=== PATIENT | female | born 1990 | race Caucasian/White ===

== ENCOUNTER 2023-12-17 12:03 | Emergency (ER) | payer BC ==
[~2023-12-17] VITALS: Ht 175.3 cm; Wt 73.0 kg
[2023-12-17] VITALS (9 sets, daily range): BP systolic 126; BP diastolic 85; TEMP 98.4; O2SAT 97–100
[2023-12-17] MEDS ORDERED: predniSONE 20 MG TABLET ONE (12:38)
[2023-12-17] MEDS: predniSONE 20 MG TABLET PO ONE (12:41)
[2023-12-17] MEDS ORDERED: IPRATROPIUM NEB FS 0.5 MG/2.5 ML AMPUL.NEB ONE (12:47)
[2023-12-17] MEDS ORDERED: ALBUTEROL FS 2.5 MG/3 ML VIAL.NEB ONE ×2 (12:47→13:09)
[2023-12-17] MEDS: IPRATROPIUM NEB FS 0.5 MG/2.5 ML AMPUL.NEB NEB ONE ×2 (13:04→13:14)
[2023-12-17] MEDS: ALBUTEROL FS 2.5 MG/3 ML VIAL.NEB CONTNEB ONE ×2 (13:04→13:14)
[2023-12-17] MEDS ORDERED: AZIT250T13 PO (13:40)
[2023-12-17] MEDS ORDERED: ALBU2SYR3 PO (13:40)
[2023-12-17] MEDS ORDERED: PRED50TA PO (13:40)
[2023-12-17] MEDS ORDERED: NEBU-171 MC (13:40)
[2023-12-17] MEDS ORDERED: ALBU18HF2 INH (13:40)
== END 2023-12-17 14:09 | disposition home or self-care (01) ==
LOC: ER 12:06
DX: J45.909 Unspecified asthma, uncomplicated (principal); Z60.2 Problems related to living alone
CPT/HCPCS: 99283; 94640 ×3; J7512